=== PATIENT | female | born 1955 | race Caucasian/White ===

== ENCOUNTER → 2017-06-03 | Emergency (ER) | payer OTHER ==
[~2017-06-03] VITALS: Ht 160 cm; Wt 59.0 kg
[~2017-06-03] MED LIST: CRESTOR10 MG; DOLOGEN CAPLET1 EACH PO; LEXAPRO5 MG; TOPROL XL25 M1
== END | disposition home or self-care (01) ==
LOC: ER 17:24
DX: S42.455A Nondisplaced fracture of lateral condyle of left humerus, initial encounter for closed fracture (principal); W18.39XA Other fall on same level, initial encounter; Y93.89 Activity, other specified; Y92.89 Other specified places as the place of occurrence of the external cause; Y99.8 Other external cause status